=== PATIENT | male | born 1945 | race Caucasian/White ===

== ENCOUNTER 2017-08-28 15:24 | Emergency (ER) | payer MEDICARE ==
[~2017-08-28] VITALS: Ht 167.6 cm; Wt 68.4 kg
[2017-08-28 15:59] VITALS: Ht 167.6 cm; Wt 68.4 kg
[2017-08-28] MEDS ORDERED: SODIUM CHLORIDE 0.9% 1L BAG IV* STA (19:09)
--- NOTE | 2017-08-28 19:15 | ERD ---
ER Documentation Chief Complaint Chief Complaint Complains of generalized weakness x 3 days HPI Patient is a 71-year-old male who presents with gradual onset, constant, progressive generalized weakness for 3 days. He states that when he is walking he feels like his legs are weak bilaterally and his equilibrium is off. He reports having fever and bilateral low back pain. He denies vomiting or diarrhea. He denies chest pain or shortness of breath. He denies cough. He denies dysuria. He denies urinary incontinence. He denies abdominal pain. ROS All systems reviewed and are negative except as per history of present illness. Medications Home Meds Active Scripts Meclizine Hcl* (Antivert*) 12.5 Mg Tab, 25 MG PO Q6H Y for DIZZINESS, #20 TAB Prov:BENI TURCIOS MD 08/28/17 Azithromycin* (Zithromax*) 250 Mg Tablet, 250 MG PO .ZPACK DIRECTED, #6 TAB TAKE 500 MG (2 TABS) THE FIRST DAY THEN 250 MG (1 TAB) DAYS 2-5 Prov:BENI TURCIOS MD 08/28/17 Allergies Allergies: Coded Allergies: No Known Allergy (Unverified , 08/28/17) PMhx/Soc Past medical history: None Past surgical history: None Social history: Denies tobacco or alcohol FmHx Family History: No coronary disease, No diabetes Physical Exam Vitals Vital Signs Date Time Temp Pulse Resp B/P Pulse Ox O2 Delivery O2 Flow Rate FiO2 08/28/17 23:35 98 18 122/66 96 Room Air 08/28/17 23:30 80 18 119/63 97 Room Air 08/28/17 23:25 100.1 73 18 110/57 93 Room Air 08/28/17 23:02 99.3 80 17 118/56 93 Room Air 08/28/17 21:00 75 21 129/73 98 Room Air 08/28/17 19:17 100.1 08/28/17 15:59 99.7 100 20 120/66 96 Physical Exam Const: Alert, no acute distress Head: Atraumatic Eyes: Normal Conjunctiva, No pallor, no icterus ENT: Normal External Ears, Nose and Mouth. Mucous membranes moist Neck: Full range of motion..~ No meningismus. Resp: Clear to auscultation bilaterally, No wheezes, no rales Cardio: Regular rate and rhythm, no murmurs Abd: Soft, non tender, non distended. Skin: No petechiae or rashes Back: No midline or flank tenderness, Mild bilateral lumbar paraspinal muscle tenderness. Ext: No cyanosis, or edema Neur: Awake and alert, Cranial nerves II through XII intact bilaterally, strength and sensation full in 4 extremity's, no pronator drift, no dysmetria, Normal gait. Psych: Normal Mood and Affect Result Diagram: 08/28/17191408/28/171914 Results 24 hrs Laboratory Tests Test 08/28/17 19:15 08/28/17 20:00 White Blood Count 12.910^3/ul Red Blood Count 4.4910^6/ul Hemoglobin 12.5g/dl Hematocrit 37.7% Mean Corpuscular Volume 84.0fl Mean Corpuscular Hemoglobin 27.8pg Mean Corpuscular Hemoglobin Concent 33.2g/dl Red Cell Distribution Width 14.0% Platelet Count 76637^3/UL Mean Platelet Volume 10.0fl Neutrophils % 70.4% Lymphocytes % 17.8% Monocytes % 11.1% Eosinophils % 0.1% Basophils % 0.3% Nucleated Red Blood Cells % 0.0/100WBC Neutrophils # 9.110^3/ul Lymphocytes # 2.310^3/ul Monocytes # 1.410^3/ul Eosinophils # 0.010^3/ul Basophils # 0.010^3/ul Nucleated Red Blood Cells # 0.010^3/ul Prothrombin Time 14.6Sec Prothrombin Time Ratio 1.1 INR International Normalized Ratio 1.12 Activated Partial Thromboplast Time 39.0Sec Sodium Level 137mmol/L Potassium Level 4.4mmol/L Chloride Level 98mmol/L Carbon Dioxide Level 29mmol/L Anion Gap 14 Blood Urea Nitrogen 10mg/dl Creatinine 0.99mg/dl Glucose Level 116mg/dl Lactic Acid Level 0.9mmol/L Calcium Level 9.7mg/dl Total Bilirubin 1.1mg/dl Direct Bilirubin 0.00mg/dl Indirect Bilirubin 1.1mg/dl Aspartate Amino Transf (AST/SGOT) 24IU/L Alanine Aminotransferase (ALT/SGPT) 35IU/L Alkaline Phosphatase 107IU/L Troponin I < 0.012ng/ml Total Protein 7.6g/dl Albumin 3.9g/dl Globulin 3.70g/dl Albumin/Globulin Ratio 1.05 Urine Color YELLOW Urine Clarity CLEAR Urine pH 6.0 Urine Specific [place] 1.010 Urine Ketones NEGATIVEmg/dL Urine Nitrite NEGATIVEmg/dL Urine Bilirubin NEGATIVEmg/dL Urine Urobilinogen 2+mg/dL Urine Leukocyte Esterase NEGATIVELeu/ul Urine Hemoglobin NEGATIVEmg/dL Urine Glucose NEGATIVEmg/dL Urine Total Protein NEGATIVEmg/dl Current Medications Medications (Trade) Dose Ordered Sig/Alexa Route PRN Reason Start Time Stop Time Status Last Admin Dose Admin Sodium Chloride (NS) 2,120 ml BOLUS OVER 2 HOURS STAT IV* 08/28/17 19:09 08/28/17 19:12 DC 08/28/17 20:01 Procedures/MDM EKG read by me: Time 1903, rate 80 Rhythm: Normal sinus Burke: Rightward axis Intervals: Normal ST-T waves: no ischemic changes Ectopy: No Q-waves: No Impression: No evidence of ischemia or arrhythmia EKG read by me: Time 2039, rate 79 Rhythm: Normal sinus Burke: Rightward axis Intervals: Normal ST-T waves: no ischemic changes Ectopy: No Q-waves: No Impression: No evidence of ischemia or arrhythmia MDM: Patient is a 71-year-old male who presents with low-grade fever and generalized weakness for 3 days. He initially complained of low back pain, but the symptom resolved during this time in the ER. He had a negative urinalysis. Chest x-ray showed atelectasis, and although the patient denied cough, he was observed to be coughing while in the ER, and later acknowledged having occasional cough. He had normal oxygen saturation. He did not have a true fever, but had low-grade temperature. He was given IV fluids, and on reassessment stated that he felt much better. He denied any pain and stated that he no longer felt dizzy. He does report his dizziness is a vertigo-like sensation, but he has a completely normal neurologic examination. He was able to ambulate without difficulty and has a steady gait. He will be discharged with a Z-Home for possible bronchitis, and meclizine for vertigo. He was counseled on need for close PMD follow-up and return precautions. Departure Diagnosis: Primary Impression: Vertigo Additional Impressions: Bronchitis Generalized weakness Condition: BENI Lawrence MD Aug 28, 2017 19:15
[2017-08-28 19:29] LABS: BASOPHILS % 0.3 % (0.0-2.0); EOSINOPHILS % 0.1 % (0.0-7.0); HEMATOCRIT 37.7 % (42.0-52.0); HEMOGLOBIN 12.5 g/dl (14.0-18.0); LYMPHOCYTES # 2.3 10^3/ul (0.8-2.9); LYMPHOCYTES % 17.8 % (15.0-51.0); MEAN CORPUSCULAR HEMOGLOBIN 27.8 pg (29.0-33.0); MEAN CORPUSCULAR HGB CONC 33.2 g/dl (32.0-37.0); MONOCYTE # 1.4 10^3/ul (0.3-0.9); MONOCYTES % 11.1 % (0.0-11.0); NEUTROPHIL # 9.1 10^3/ul (1.6-7.5); NEUTROPHILS % 70.4 % (39.0-77.0); PLATELET COUNT 221 10^3/UL (140-415); RED BLOOD COUNT 4.49 10^6/ul (4.70-6.10); WHITE BLOOD COUNT 12.9 10^3/ul (4.8-10.8)
[2017-08-28 19:33] LABS: INR 1.12; PROTIME 14.6 Sec (11.9-14.9); PT RATIO 1.1
[2017-08-28 19:37] LABS: ALANINE AMINOTRANSFERASE 35 IU/L (13-69); ALBUMIN 3.9 g/dl (3.3-4.9); ALBUMIN/GLOBULIN RATIO 1.05; ALKALINE PHOSPHATASE 107 IU/L (42-121); ANION GAP 14 (8-16); ASPARTATE AMINO TRANSFERASE 24 IU/L (15-46); BILIRUBIN,INDIRECT 1.1 mg/dl (0-1.1); BILIRUBIN,TOTAL 1.1 mg/dl (0.2-1.3); BLOOD UREA NITROGEN 10 mg/dl (7-20); CALCIUM 9.7 mg/dl (8.4-10.2); CARBON DIOXIDE 29 mmol/L (21-31); CHLORIDE 98 mmol/L (97-110); CREATININE 0.99 mg/dl (0.61-1.24); GLUCOSE 116 mg/dl (70-220); POTASSIUM 4.4 mmol/L (3.5-5.1); SODIUM 137 mmol/L (135-144); TOTAL PROTEIN 7.6 g/dl (6.1-8.1)
[2017-08-28 19:48] LABS: TROPONIN-I < 0.012 ng/ml (0.00-0.12)
--- NOTE | 2017-08-28 19:56 | RADRPT ---
PROCEDURE: XR Chest. CLINICAL INDICATION: Cough. Possible sepsis. TECHNIQUE: Single frontal view of the chest was obtained COMPARISON: None FINDINGS: The airway shifted to the right. The heart is normal in size. There is right upper lobe atelectasis. There are suggestion of mild bronchiectasis in the bilateral lungs, right greater left. The osseous structures are unremarkable. IMPRESSION: 1. Right upper lobe atelectasis with associated rightward shift of the mediastinum. 2. Suggestion of nonspecific mild bronchiectasis in the bilateral lungs, right greater left. RPTAT:AAJJ Physician Vianney Date Time Electronically viewed and signed by Physician Vianney on 08/28/2017 19:55 QL/
[2017-08-28 21:00] LABS: ADD UMIC NO; UR ASCORBIC ACID NEGATIVE (NEGATIVE); UR BILIRUBIN (Dip) NEGATIVE (NEGATIVE); UR BLOOD (Dip) NEGATIVE (NEGATIVE); UR CLARITY CLEAR (CLEAR); UR COLOR YELLOW (YELLOW); UR GLUCOSE (Dip) NEGATIVE (NEGATIVE); UR KETONES (Dip) NEGATIVE (NEGATIVE); UR LEUKOCYTE ESTERASE (Dip) NEGATIVE Leu/ul (NEGATIVE); UR NITRITE (Dip) NEGATIVE (NEGATIVE); UR TOTAL PROTEIN (Dip) NEGATIVE (NEGATIVE); UR UROBILINOGEN (Dip) 2+ mg/dL (NEGATIVE)
[2017-08-28 23:35] VITALS: BP 122/66; PULSE 98; RESP 18
[2017-08-28] MEDS ORDERED: MECL12.574 PO (23:37)
[2017-08-28] MEDS ORDERED: AZIT250T94 PO (23:37)
== END 2017-08-28 23:54 | disposition home or self-care (01) ==
LOC: E/R 15:24
DX: R42 Dizziness and giddiness (principal); J20.9 Acute bronchitis, unspecified; R07.9 Chest pain, unspecified
CPT/HCPCS: 36415; 71010; 80053; 81003; 83605; 84484; 85025; 85610; 85730; 87040; 87086; 99284; J7030